=== PATIENT | male | born 1960 | race Caucasian/White ===

== ENCOUNTER → 2019-06-19 | Day surgery (SDC) | payer BC ==
[~2019-06-19] MED LIST: ALBUTEROL SULFATE 2.5 MG/3 ML NEBU. NEB PRN; ASPI81TA50 PO; CARV6.2511 PO; CETI10TA16 PO; CHOL10003 PO; EPINEPHrine 1 MG/ML VIAL INJ PRN; EPINEPHrine 1 MG/ML VIAL ONE; FLAX10003 PO; IV RINGERS,LACTATED 1000ML 1,000 ML IV ONE; LIDOCAINE 1% Multi-Dose 20 ML VIAL. INJ PRN; LIDOCAINE 1% Multi-Dose 20 ML VIAL. ONE; LIDOCAINE 2% PF 5 ML VIAL. ONE; LIDOCAINE 2% VISCOUS 100 ML BOTTLE. MM PRN; LIDOCAINE 2% VISCOUS 100 ML BOTTLE. ONE; LIDOCAINE 4% TOPICAL 50 ML SOLUTION. MM PRN; LIDOCAINE 4% TOPICAL 50 ML SOLUTION. ONE; OMEP20TA8 PO; PROP150T2 PO; PROPOFOL 20 ML IV ONE; PROPOFOL 40 ML IV ONE
[2019-06-19 11:30] LABS: BASO # 0.1 x10^3/uL (0.0-0.2); BASO % 1 % (0-3); EOS # 0.2 x10^3/uL (0.0-0.7); EOS % 2 % (0-3); HEMATOCRIT 41.8 % (39.0-53.0); HEMOGLOBIN 14.8 g/dL (13.0-17.5); LYMPH # 1.2 x10^3/uL (1.0-4.8); LYMPH % 11 % (24-48); MEAN CORPUSCULAR HEMOGLOBIN 32 pg (25-35); MEAN CORPUSCULAR HGB CONC 35 g/dL (31-37); MEAN CORPUSCULAR VOLUME 90 fL (79-100); MONO % 10 % (0-9); NEUT # 8.3 x10^3/uL (1.8-7.7); NEUT % 77 % (31-73); PLATELET COUNT 264 x10^3/uL (140-400); RED BLOOD COUNT 4.65 x10^6/uL (4.30-5.70); RED CELL DISTRIBUTION WIDTH 13.1 % (11.5-14.5); WHITE BLOOD COUNT 10.9 x10^3/uL (4.0-11.0)
[2019-06-19 11:40] LABS: PROTHROMBIN TIME PATIENT 12.6 SEC (11.7-14.0)
--- NOTE | 2019-06-19 12:40 | RESP ---
DATE OF SERVICE: BRONCHOSCOPY NOTE INDICATIONS: Abnormal CT chest with hilar mass on the left. Informed consent was obtained from the patient. All risks and benefits were explained. Informed consent was obtained from the patient's daughter as well. They both agreed to proceed with the procedure. Propofol was used for sedation by Anesthesia. Bronch was introduced through the left nostril. The upper airway was passed. Vocal cords moves equally with respiration. The trachea was entered. The right lung was first examined. The right upper lobe and right lower lobe were patent. 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 The bronch was introduced into the left lung. There is an endobronchial lesion involving the left upper lobe causing significant narrowing of the left upper lobe segment. Multiple biopsies x 3 were performed from this area along with cytology brush and bronchial wash. The lingula was minimally narrow, but no definite endobronchial lesion seen. The left lower lobe appeared to be patent. The patient tolerated the procedure well. No significant bleeding post-biopsy noticed. IMPRESSION: 1. Endobronchial lesion in the left upper lobe opening causing narrowing of the left upper lobe bronchus. 2. Multiple biopsies, cytology brush and bronchial wash was performed from the left upper lobe bronchus. 3. 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 4. Follow the results of the biopsy with Dr. Mello. POLA RING MD DR: SIVA/alexis JOB#: [id number] / [id number]
[2019-06-19 12:59] VITALS: BP 125/79
--- NOTE | 2019-06-23 16:06 | PATHOLOGY ---
Note [facility] Accession Number: [id number] TESTS RESULT FLAG UNITS REF RANGE LAB Clinician Provided Cytology Information No. of containers..01 Other (Miscellaneous) Source: KYARA BRONCH WASH DIAGNOSIS: 02 KAYRA BRONCH WASH NEGATIVE FOR MALIGNANT CELLS. NORMAL BRONCHIAL CELLS AND MACROPHAGES ARE PRESENT. Signed out by: 02 Von Cherry MD, Pathologist NPI- [id number] Performed by: Tammy Merida, Material Handler ([facility]) Gross description: 01 5ML, RED, CLOUDY /LCS FLAG LEGEND: L-Low Normal,H-High Normal,LL-Alert Low,HH-Alert High <-Panic Low,>-Panic High,A-Abnormal,AA-Critical Abnormal Performed at: [address] [place] [address] Atif oGld MD, 02 [facility] [address] [place] [address] Von Cherry MD, Specimen Comment: A courtesy copy of this report has been sent to Specimen Comment: [phone], . Specimen Comment: Report sent to / DR LAWLER Specimen Comment: A duplicate report has been generated due to demographic updates. Performed at: [address] [place] [address] [address], [place], [place] [id number] MD Atif Gold MD Phone: [phone]
--- NOTE | 2019-06-23 17:06 | PATHOLOGY ---
[facility] Accession Number: [id number] . 01 Material submitted: . bronchus - BRONCH BIOPSY, KYARA. Modifiers: left, upper lobe . 01 Clinical history: . Lung nodule . 02 Diagnosis: Bronchial biopsy, left upper lobe: - SMALL CELL CARCINOMA. SEE COMMENT. - Chronic inflammation. (JPM:pit 06/23/2019) LBQ/06/23/2019 . 02 Comment: Sections of the left upper lobe bronchial biopsy reveal a segment of bronchial mucosa and two segments of blood clot. The bronchial mucosa shows mild chronic inflammation. The segments of blood clot contain small strips of bronchial epithelium and a cluster of atypical cells showing crush artifact. The atypical cells have a high N/C ratio with scanty amounts of cytoplasm. The atypical cells possess slightly enlarged, rounded to ovoid nuclei having a finely dispersed chromatin and small nucleoli. There is focal nuclear molding. There is no obvious glandular or squamous differentiation. . A panel of immunoperoxidase stains is obtained on block A1 and yields the following results: AE1/AE3: Atypical cells show dot like positivity TTF-1: Atypical cells positive CK7: Atypical cells negative CD56: Atypical cells positive P40: Atypical cell negative CD45: Atypical cells negative . 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 The case is also examined by Dr. Tran, who concurs with the diagnosis. The results are reported to Dr. Castelan on 06/23/19 at 4:40 PM. (JPM/db/pit; 06/20/2019) . Immunoperoxidase stains for AE1/AE3, TTF-1, CK7, CD56, p40, CD45 . 02 Electronically signed: . Von Cherry MD, Pathologist NPI- [id number] . 01 Gross description: . Received in formalin labeled "Malini, Yobani, KYARA," are 3 segments of ni soft tissue measuring 0.5 x 0.4 x 0.1 cm in aggregate dimensions and ranging from 0.1 to 0.3 cm in maximum dimension. The specimen is submitted entirely in cassette A1. (TSD; 06/19/2019) TOB/TOB . 02 Pathologist provided ICD-10: C34.12 . 02 CPT . 102266, [id number], [id number] Specimen Comment: A courtesy copy of this report has been sent to Specimen Comment: [phone], . Specimen Comment: Report sent to / DR LAWLER Performed at: 01 [facility] [address] [facility] [address], [place] [id number] MD Atif Gold MD Phone: [phone] Performed at: 02 [facility] [address] [place], [place] [id number] MD Von Cherry MD Phone: [phone]
--- NOTE | 2019-06-23 17:06 | PATHOLOGY ---
Note [facility] Accession Number: [id number] TESTS RESULT FLAG UNITS REF RANGE LAB Clinician Provided Cytology Information No. of containers..01 Other (Miscellaneous) Source: KYARA BRUSHING DIAGNOSIS: KYARA BRUSHING NEGATIVE FOR MALIGNANT CELLS. BRONCHIAL EPITHELIAL CELLS PRESENT. Signed out by: 02 Von Chrery MD, Pathologist NPI- [id number] Performed by: Tammy Merida, Whipped Topping Supervisor ([facility]) FLAG LEGEND: L-Low Normal,H-High Normal,LL-Alert Low,HH-Alert High <-Panic Low,>-Panic High,A-Abnormal,AA-Critical Abnormal Performed at: [address] [place] [address] Atif Gold MD, 02 [facility] [address] [place] [address] Von Cherry MD, Specimen Comment: A duplicate report has been generated due to demographic updates. Performed at: [address], [place], [place] [id number] MD Atif Gold MD Phone: [phone]
--- NOTE | 2019-06-23 17:06 | PATHOLOGY ---
Note [facility] Accession Number: [id number] TESTS RESULT FLAG UNITS REF RANGE LAB Clinician Provided Cytology Information No. of containers..01 Other (Miscellaneous) Source: BRUSHING BRUSH TIP DIAGNOSIS: 02 BRUSHING BRUSH TIP INCONCLUSIVE. FEW ATYPICAL CELLS, BRONCHIAL EPITHELIAL CELLS, AND FEW PULMONARY MACROPHAGES PRESENT. Signed out by: Von Cherry MD, Pathologist NPI- [id number] Performed by: Tammy Merida, Asphalt Screed Operator ([facility]) Gross description: 01 50ML, CYNDIE, CLEAR /LCS FLAG LEGEND: L-Low Normal,H-High Normal,LL-Alert Low,HH-Alert High <-Panic Low,>-Panic High,A-Abnormal,AA-Critical Abnormal Performed at: [address] [place] [address] Atif Gold MD, 02 [facility] [address] [place] [address] Von Cherry MD, Specimen Comment: A duplicate report has been generated due to demographic updates. Performed at: [address], [place], [place] [id number] MD Atif Gold MD Phone: [phone]
== END ==
LOC: SURG 10:45
PROVIDERS: ATTEND Internal Medicine Critical Care Medicine
DX: C34.12 Malignant neoplasm of upper lobe, left bronchus or lung (principal); Z79.01 Long term (current) use of anticoagulants
CPT/HCPCS: 31625; 36415; 85025; 85610; 85730; 88104; 88112; 88305; 88341; 88342; 94640; J0171; J2001; J2704; J7613; 31622

== ENCOUNTER → 2019-06-26 | Outpatient (CLI) | payer BC ==
[2019-06-19 12:59] VITALS: BP 125/79
[~2019-06-26] MED LIST changes: -ALBUTEROL SULFATE 2.5 MG/3 ML NEBU. NEB PRN; -EPINEPHrine 1 MG/ML VIAL INJ PRN; -EPINEPHrine 1 MG/ML VIAL ONE; -IV RINGERS,LACTATED 1000ML 1,000 ML IV ONE; -LIDOCAINE 1% Multi-Dose 20 ML VIAL. INJ PRN; -LIDOCAINE 1% Multi-Dose 20 ML VIAL. ONE; -LIDOCAINE 2% PF 5 ML VIAL. ONE; -LIDOCAINE 2% VISCOUS 100 ML BOTTLE. MM PRN; -LIDOCAINE 2% VISCOUS 100 ML BOTTLE. ONE; -LIDOCAINE 4% TOPICAL 50 ML SOLUTION. MM PRN; -LIDOCAINE 4% TOPICAL 50 ML SOLUTION. ONE; -PROPOFOL 20 ML IV ONE; -PROPOFOL 40 ML IV ONE
--- NOTE | 2019-06-26 14:09 | RAD ---
CLINICAL HISTORY: Chest pain INDICATION: Lung mass COMPARISON: None available. TECHNIQUE: Location of scan: [facility] Dose: 14.6 mCi F-18 FDG intravenous Blood glucose at time of study: 106 FDG uptake time = 60 minutes. Images were obtained from the mid head to the mid thighs. A low dose, noncontrast CT study was performed for the purpose of attenuation correction and anatomic localization. FINDINGS: Head and Neck: Lytic skull base lesion described under the skeletal section. Physiologic activity is otherwise seen within the head and neck. Chest: Hypermetabolic left suprahilar mass has an SUV max of 17. Nodular density extending toward the left upper lobe/apex from the left suprahilar mass measures 1.6 x 1.3 x approximately 5 cm with an SUV max of 6.3. Additional smaller 3-4 mm lung nodules are below the threshold for evaluation with PET scan. No definite hypermetabolic axillary, mediastinal or hilar lymphadenopathy. Abdomen and Pelvis: Numerous hepatic hypodense lesions are seen likely metastatic disease. For example a 3.3 cm right hepatic lobe hypodense lesion has an SUV max of 13.2. Physiologic activity is seen within the solid organs, renal collecting system and bowel. No abdominal or pelvic hypermetabolic lymphadenopathy is seen. Skeletal: There is a lytic lesion within the base of the right calvarium, likely within the right sphenoid bone measuring approximately 2.2 cm with increased SUV max of 12.8. In addition there are additional hypermetabolic lytic lesions within the osseous structures. For example at the posterior elements of T6, within the vertebral body at L1 and posterior elements of L2 there are lytic lesions with hypermetabolic activity. At T6 the SUV max measures approximately 8.7, at the posterior elements of L2 the SUV max measures 6.8 and within the L1 vertebral body to SUV max measures 11.9. Hypermetabolic sternal focus has an SUV max of 8.1. Reference SUV Values: Mediastinal SUV Max: 2.1 Liver SUV Max: 2.9 IMPRESSION: 1. Hypermetabolic left suprahilar mass is consistent with malignancy. Associated left upper lobe nodular density is also hypermetabolic, suspicious for malignancy. 2. Hypermetabolic hepatic and bony lesions are consistent with metastatic disease. Radiation Dosimetry: The radiopharmaceutical used for this exam delivers approximately 0.7 mSv/mCi (70 mRem/mCi) Source: ICRP Publication 106
== END | disposition home or self-care (01) ==
LOC: PETSC 09:57
PROVIDERS: ATTEND Internal Medicine Pulmonary Disease
DX: R22.2 Localized swelling, mass and lump, trunk (principal); K76.9 Liver disease, unspecified
CPT/HCPCS: 78815; A9552